=== PATIENT | male | born 1960 | race Caucasian/White ===

== ENCOUNTER 2024-05-11 07:02 | Inpatient (IN) | payer BC, MEDICARE ==
[2024-05-11] VITALS (18 sets, daily range): BP systolic 117–161; BP diastolic 63–97; PULSE 61–83; RESP 12–21; TEMP 97.4–98.5; O2SAT 2–98
[~2024-05-11] VITALS: Ht 170.2 cm; Wt 85.1 kg
[~2024-05-11 07:02] MED LIST: AMLO1TAB22 PO; ASPI1TAB20 PO; ATOR20TA PO; METF-370 PO; METO25TA5 PO
[2024-05-11] MEDS: LIDOCAINE 2%HCL (LOCAL ANESTH.) INJ 20ML MDV ONE (07:20)
[2024-05-11] MEDS: IOHEXOL 350 MG/ML 100ML IJ ONE (07:20)
[2024-05-11] MEDS: IODIXANOL 320MG/ML 100ML BTL IV ONE (07:21)
[2024-05-11] MEDS: HEPARIN IN NS 1000Units/500mL 1,500 ML ONE (07:21)
[2024-05-11] MEDS: ATROPINE SULF 1 MG/10ml SYR ONE (08:13)
[2024-05-11] MEDS: ANGIOMAX 250 MG VIAL IV ONE (08:14)
[2024-05-11] MEDS: MIDAZOLAM HCL 2MG/2ML 2ml VIAL (1mg/ml) ONE (08:14)
[2024-05-11] MEDS: SODIUM CHL 0.9% 0 ML ONE (08:14)
[2024-05-11] MEDS: EPINEPHrine HCL 1 MG/10 ML SYRG ONE (08:14)
[2024-05-11] MEDS: fentaNYL CITRATE 100 MCG/2 ML VL ONE (08:14)
[2024-05-11] MEDS: VERAPAMIL 2.5MG/ML INJ 2ML VIAL IV ONE (08:16)
[2024-05-11] MEDS: HEPARIN SODIUM (PORCINE) 5000 UNITS/ML 1ML VIAL ONE (08:16)
[2024-05-11] MEDS: ASPirin 81 mg TAB ONE (09:00)
[2024-05-11] MEDS ORDERED: HEPARIN DRIP/D5W 100UNITS/ML 250 ML IV SCH (09:15)
[2024-05-11] MEDS: HEPARIN DRIP/D5W 100UNITS/ML 250 ML IV SCH ×3 (09:38→18:12)
[2024-05-11] MEDS: HEPARIN DRIP/D5W 100UNITS/ML 250 ML IV ONE (09:38)
[2024-05-11] MEDS ORDERED: ASPirin 81 mg TAB PO SCH (10:00)
[2024-05-11] MEDS ORDERED: ONDANSETRON HCL 4 MG/2 ML VIAL IV PRN (11:15)
[2024-05-11] MEDS ORDERED: DOCUSATE SOD 100 MG CAP PO PRN (11:15)
[2024-05-11] MEDS: MORPHINE SULFATE INJ 2 MG/ml SYRG IV ONE (12:55)
[2024-05-11 16:29] LABS: INR 1.02 (0.9-1.15); Partial Thromboplastin Time 38.9 SEC (24.5-34.5); Prothrombin Time 10.8 sec (9.3-11.8)
[2024-05-11] MEDS: MORPHINE SULFATE INJ 2 MG/ml SYRG IV PRN (20:17)
[2024-05-11] MEDS: METOPROLOL TARTRATE 25 MG TAB PO SCH (21:08)
[2024-05-11 23:03] LABS: Basophils # (auto) 0.1 10 ^3/uL (0-0.2); Basophils % (auto) 0.7 % (0.0-2.0); Eosinophils # (auto) 0.3 10 ^3/uL (0-0.8); Hematocrit 37.3 % (41.0-53.0); Hemoglobin 13.1 g/dL (13.5-17.5); Lymphocytes # (auto) 2.6 10 ^3/uL (0.4-5.4); Lymphocytes % (auto) 25.9 % (10.0-50.0); Mean Corpuscular Hemoglobin 32.4 pg (28.0-32.0); Mean Corpuscular Hgb Conc. 35.1 g/dL (32.0-36.0); Mean Corpuscular Volume 92.3 fL (80.0-100.0); Monocytes # (auto) 1.1 10 ^3/uL (0-1.3); Monocytes % (auto) 10.6 % (0.0-12.0); Neutrophils # (auto) 5.9 10 ^3/uL (1.6-8.6); Neutrophils % (auto) 59.8 % (37.0-80.0); Nucleated Red Blood Cells % 0.1 %; Red Blood Cells 4.04 10^6/uL (4.5-5.90); Red Cell Distribution Width 13.3 % (11.8-14.3); White Blood Cell 9.9 10^3/uL (4.4-10.8)
[2024-05-11 23:20] LABS: INR 1.05 (0.9-1.15); Partial Thromboplastin Time 44.4 SEC (24.5-34.5); Prothrombin Time 11.1 sec (9.3-11.8)
[2024-05-12] MEDS ORDERED: HEPARIN DRIP/D5W 100UNITS/ML 250 ML IV SCH (01:00)
[2024-05-12] MEDS ORDERED: ATORVASTATIN 20 MG TAB PO SCH (10:00)
[2024-05-12] MEDS ORDERED: ASPirin-EC 81 mg tab PO SCH (10:00)
[2024-05-12] MEDS ORDERED: ASPirin 81 mg TAB PO SCH (10:00)
[2024-05-12] MEDS ORDERED: amLODIPine BESYLATE 5 MG TAB PO SCH (10:00)
== END 2024-05-12 00:15 | disposition short-term general hospital (02) | DRG 287 ==
LOC: CATH 07:02 → TELE 11:08 → TELE-CENTR 17:38
PROVIDERS: ADMIT Nurse Practitioner Family; ATTEND Nurse Practitioner Family
PROC: 4A023N7 Measurement of Cardiac Sampling and Pressure, Left Heart, Percutaneous Approach (ICD-10-PCS; principal; 2024-05-11)
PROC: B211YZZ Fluoroscopy of Multiple Coronary Arteries using Other Contrast (ICD-10-PCS; 2024-05-11)
PROC: B215YZZ Fluoroscopy of Left Heart using Other Contrast (ICD-10-PCS; 2024-05-11)
DX: I25.10 Atherosclerotic heart disease of native coronary artery without angina pectoris (principal); E78.00 Pure hypercholesterolemia, unspecified; I10 Essential (primary) hypertension; E11.9 Type 2 diabetes mellitus without complications; Z79.82 Long term (current) use of aspirin; Z79.84 Long term (current) use of oral hypoglycemic drugs; Z79.4 Long term (current) use of insulin; Z79.899 Other long term (current) drug therapy
CPT/HCPCS: 36415; 85025; 85610; 85730; 99152; G0378; J2250; Q9967